=== PATIENT | male | born 1985 | race Caucasian/White ===

== ENCOUNTER → 2018-03-15 08:46 | Outpatient (CLI) | payer OTHER, SELFPAY ==
--- NOTE | 2018-03-15 08:50 | FL_ITS ---
NE upper GI small bowel Ordering Physician: Kenneth Mckinney MD Patient Age: 32 years: Male HISTORY: ITS.REASON: abdominal pain abdominal pain on and off for 10 years with nausea and some vomiting. Nausea in morning. Previous endoscopy. Patient reported left lower quadrant pain just above the lateral left iliac bone. There is is history of long-standing abdominal pain elsewhere. Include Upper abdomen TECHNIQUE: Air-contrast UGI esophagus small bowel series performed by Dr. Szymanski. 3 minutes 7 seconds fluoroscopy time COMPARISON :.. no priors studies FINDINGS [employer] film shows normal bowel gas pattern with only minimal stool throughout colon. UGI.-. No significant findings And thoracic esophagus appears satisfactory with only a tiny 2-3 mm traction diverticulum left aspect of the esophagus subcarinal region noted. No hiatal hernia. Normal mucosal pattern esophagus. No appreciable reflux evident at this setting.. Moderate phrenic ampulla . stomach appears WNL. Normal rugal full pattern distensible. No ulceration or lesion. Only note generous to the stomach at the onset of study which can reflect hypersecretion Pylorus unremarkable.The duodenal bulb was distensible with no ulcer and within normal limits. Upper normal mucosal pattern of the descending duodenum. Duodenal loop normal anatomy. SMALL BOWEL SERIES . normal appearance to the small bowel throughout. Normal caliber.. Normal mucosal pattern . No filling defects. No dilatation or obstruction The terminal ileum appears normal. Well-visualized. *Additional attention was directed towards the left lower quadrant, laterally just above the left iliac crest-this is where the patient states he has current pain. No no abnormalities evident here by this modality . IMPRESSION: 1. UGI.... Essentially negative ... Stomach appears normal. Only note a generous fluid at stomach at onset of study which can reflect hypersecretion. ... Esophagus: only note Tiny 3 mm traction diverticulum left mid esophagus subcarinal region-. Not of significance ....Esophagus Stomach, pylorus and duodenal bulb and loop otherwise unremarkable.. 2. Small Bowel series-WNL. Terminal ileum normal .
== END ==
PROVIDERS: PCP Surgery; Visit Provider Surgery
DX: R19.5 Other fecal abnormalities (principal); R10.84 Generalized abdominal pain
CPT/HCPCS: 74245

== ENCOUNTER → 2018-03-20 10:09 | Outpatient (CLI) | payer OTHER, SELFPAY ==
--- NOTE | 2018-03-20 10:12 | XR_ITS ---
XR KUB HISTORY: Abdominal pain, recent upper GI. Evaluate for residual barium which would impact gastric emptying exam if present ITS.REASON: clear for study ORDERING PHYSICIAN: Kenneth Mckinney MD PATIENT AGE: 32 years COMPARISON: None FINDINGS: The bowel gas pattern is unremarkable. No obvious obstruction.. No abnormal calcifications are evident. No obvious renal or ureteral calculi.. No acute bony anomalies evident. No residual barium apparent IMPRESSION: Negative KUB, no acute finding
--- NOTE | 2018-03-20 10:27 | NM_ITS ---
NM gastric emptying study CLINICAL INDICATION: ITS.REASON: abdominal pain ORDERING PHYSICIAN: Kenneth Mckinney MD PATIENT AGE: 32 years Comparison: None DOSE: 0.51 mCi technetium sulfur colloid with radiolabeled meal FINDINGS: One half emptying time is normal at 56 minutes with normal being 60 +/- 30 minutes. 71% of the gastric contents had M.D. at 89 minutes. Selectivity submitted show no evidence of GE reflux. IMPRESSION: Normal gastric emptying scan
== END ==
PROVIDERS: PCP Surgery; Visit Provider Surgery
DX: R10.9 Unspecified abdominal pain (principal)
CPT/HCPCS: 74018; 78264; A9541

== ENCOUNTER → 2018-03-22 14:33 | Outpatient (CLI) | payer OTHER, SELFPAY ==
[2018-03-22 15:35] LABS: Alanine Aminotransferase 29 U/L (12-78); Albumin Level 4.1 gm/dL (3.4-5.0); Albumin/Globulin Ratio 1.4 (1.1-1.8); Alkaline Phosphatase 39 U/L (46-116); Amylase 47 U/L (25-115); Anion Gap 11.2 mEq/L (5-15); Aspartate Amino Transferase 18 U/L (15-37); Bilirubin,Total 1.6 mg/dL (0.2-1.0); Blood Urea Nitrogen 11 mg/dL (7-18); Calcium 8.8 mg/dL (8.5-10.1); Carbon Dioxide 31 mmol/L (21.0-32.0); Chloride 103 mmol/L (98-107); Creatinine,Serum 0.94 mg/dL (0.70-1.30); Estimated Glomerular Filt Rate 93 ml/min (>60); Free T4 (Free Thyroxine) 1.21 ng/dl (0.76-1.46); GFR (African American) 113 ML/MIN (>60); Glucose 98 mg/dL (74-106); Lipase 134 u/L (73-393); Potassium 4.2 mmoL/L (3.5-5.1); Sodium 141 mmol/L (136-145); Thyroid Stimulating Hormone 2.33 uIU/ml (0.358-3.740); Total Protein,Serum 7.1 gm/dL (6.4-8.2); Triiodothryronine (T3) Uptake 34 % (31-39)
[2018-03-22 15:53] LABS: Basophils # 0.1 K/mm3 (0-0.2); Basophils % 0.9 % (0.1-2.0); Eosinophils # 0.1 K/mm3 (0.0-0.4); Eosinophils % 1.6 % (0.1-12.0); Hematocrit 44.6 % (42.0-52.0); Hemoglobin 14.6 g/dL (14.1-18.0); Lymphocytes # 1.8 K/mm3 (0.7-4.5); Lymphocytes % 31.4 % (10-50); Mean Corpuscular HGB Conc 32.9 g/dL (31.8-35.4); Mean Corpuscular Hemoglobin 30.8 pg (27.0-31.2); Mean Corpuscular Volume 93.7 fl (80-94); Monocytes # 0.4 K/mm3 (0.1-1.0); Neutrophils # 3.3 K/mm3 (1.8-7.8); Neutrophils % 59.1 % (37.0-80.0); Platelet Count 272 K/mm3 (142-424); Red Blood Count 4.76 M/mm3 (4.60-6.20); Red Cell Distribution Width 12.7 % (11.5-17.5); White Blood Count 5.6 K/mm3 (4.8-10.8)
[2018-03-24 17:18] LABS: Triiodothyronine (T3) Free 3.6 pg/mL (2.0-4.4)
== END ==
PROVIDERS: Visit Provider Surgery
DX: R10.84 Generalized abdominal pain (principal); R19.5 Other fecal abnormalities
CPT/HCPCS: 36415; 80053; 82150; 83690; 84439; 84443; 84479; 84481; 85025

== ENCOUNTER → 2018-03-25 16:41 | Outpatient (CLI) | payer OTHER, SELFPAY ==
[2018-03-25 16:43] LABS: Adenovirus F 40/41, stool Not Detected (NotDetected); Astrovirus Not Detected (NotDetected); Campylobacter Not Detected (NotDetected); Cryptosporidium Not Detected (NotDetected); Cyclospora Cayetanesis Not Detected (NotDetected); Entamoeba histolytica Not Detected (NotDetected); Enteroaggregative E coli Not Detected (NotDetected); Enteropathogenic E coli Not Detected (NotDetected); Enterotoxigenic E coli Not Detected (NotDetected); Giardia lamblia Not Detected (NotDetected); Norovirus Not Detected (NotDetected); Plesimonas Shigalloides, PCR Not Detected (NotDetected); Rotavirus A Not Detected (NotDetected); Salmonella, PCR Not Detected (NotDetected); Sapovirus Not Detected (NotDetected); Shiga-like toxin E coli Not Detected (NotDetected); Shigella Enterovasive E coli Not Detected (NotDetected); Vibrio Cholerae Not Detected (NotDetected); Vibrio, PCR Not Detected (NotDetected); Yersinia Entercolitica, PCR Not Detected (NotDetected)
[2018-03-25 21:44] LABS: Clostridium Difficile A/B, PCR Detected (NotDetected)
== END ==
PROVIDERS: Visit Provider Surgery
DX: R19.5 Other fecal abnormalities (principal)
CPT/HCPCS: 87507

== ENCOUNTER → 2018-04-15 14:00 | Outpatient (CLI) | payer OTHER, SELFPAY ==
[2018-04-15 16:04] LABS: Alanine Aminotransferase 33 U/L (12-78); Alkaline Phosphatase 36 U/L (46-116); Aspartate Amino Transferase 26 U/L (15-37); Bilirubin,Direct 0.2 mg/dL (0.0-0.2); Bilirubin,Indirect 1.2 mg/dL (0.0-0.9); Bilirubin,Total 1.4 mg/dL (0.2-1.0); Blood Urea Nitrogen 8 mg/dL (7-18); Calcium 8.8 mg/dL (8.5-10.1); Carbon Dioxide 31 mmol/L (21.0-32.0); Chloride 102 mmol/L (98-107); Creatinine,Serum 0.96 mg/dL (0.70-1.30); Estimated Glomerular Filt Rate 91 ml/min (>60); GFR (African American) 110 ML/MIN (>60); Glucose 84 mg/dL (74-106); Sodium 141 mmol/L (136-145); Total Protein,Serum 6.9 gm/dL (6.4-8.2)
== END ==
PROVIDERS: Visit Provider Surgery
DX: E86.0 Dehydration (principal); E80.6 Other disorders of bilirubin metabolism
CPT/HCPCS: 36415; 80048; 80076

== ENCOUNTER → 2018-07-13 11:28 | Outpatient (CLI) | payer OTHER, SELFPAY ==
[2018-07-13 11:30] LABS: Adenovirus F 40/41, stool Not Detected (NotDetected); Astrovirus Not Detected (NotDetected); Campylobacter Not Detected (NotDetected); Cryptosporidium Not Detected (NotDetected); Cyclospora Cayetanesis Not Detected (NotDetected); Entamoeba histolytica Not Detected (NotDetected); Enteroaggregative E coli Not Detected (NotDetected); Enteropathogenic E coli Not Detected (NotDetected); Enterotoxigenic E coli Not Detected (NotDetected); Giardia lamblia Not Detected (NotDetected); Norovirus Not Detected (NotDetected); Plesimonas Shigalloides, PCR Not Detected (NotDetected); Rotavirus A Not Detected (NotDetected); Salmonella, PCR Not Detected (NotDetected); Sapovirus Not Detected (NotDetected); Shiga-like toxin E coli Not Detected (NotDetected); Shigella Enterovasive E coli Not Detected (NotDetected); Vibrio Cholerae Not Detected (NotDetected); Vibrio, PCR Not Detected (NotDetected); Yersinia Entercolitica, PCR Not Detected (NotDetected)
[2018-07-13 15:55] LABS: Clostridium Difficile A/B, PCR Detected (NotDetected)
== END ==
PROVIDERS: Visit Provider Nurse Practitioner Family
DX: R19.7 Diarrhea, unspecified (principal); A04.72 Enterocolitis due to Clostridium difficile, not specified as recurrent
CPT/HCPCS: 87507

== ENCOUNTER → 2018-09-05 15:30 | Outpatient (CLI) | payer OTHER, SELFPAY ==
[2018-09-05 15:34] LABS: Adenovirus F 40/41, stool Not Detected (NotDetected); Astrovirus Not Detected (NotDetected); Campylobacter Not Detected (NotDetected); Cryptosporidium Not Detected (NotDetected); Cyclospora Cayetanesis Not Detected (NotDetected); Entamoeba histolytica Not Detected (NotDetected); Enteroaggregative E coli Not Detected (NotDetected); Enteropathogenic E coli Not Detected (NotDetected); Enterotoxigenic E coli Not Detected (NotDetected); Giardia lamblia Not Detected (NotDetected); Norovirus Not Detected (NotDetected); Plesimonas Shigalloides, PCR Not Detected (NotDetected); Rotavirus A Not Detected (NotDetected); Salmonella, PCR Not Detected (NotDetected); Sapovirus Not Detected (NotDetected); Shiga-like toxin E coli Not Detected (NotDetected); Shigella Enterovasive E coli Not Detected (NotDetected); Vibrio Cholerae Not Detected (NotDetected); Vibrio, PCR Not Detected (NotDetected); Yersinia Entercolitica, PCR Not Detected (NotDetected)
[2018-09-05 19:55] LABS: Clostridium Difficile A/B, PCR Detected (NotDetected)
== END ==
PROVIDERS: Visit Provider Nurse Practitioner Family
DX: Z86.19 Personal history of other infectious and parasitic diseases (principal)
CPT/HCPCS: 87507

== ENCOUNTER → 2020-10-01 13:34 | Outpatient (CLI) | payer MEDICAID, SELFPAY | PROVIDERS: Visit Provider Nurse Practitioner Family | DX: J11.1 Influenza due to unidentified influenza virus with other respiratory manifestations (principal); J21.0 Acute bronchiolitis due to respiratory syncytial virus | CPT/HCPCS: 87070; 87205 ==

== ENCOUNTER 2022-01-07 12:00 | Emergency (ER) | payer MEDICAID, SELFPAY ==
[2022-01-07] VITALS (7 sets, daily range): BP systolic 117–155; BP diastolic 69–116; PULSE 67–78; RESP 16–18; TEMP 36.7–36.8; O2SAT 97–979; BMI 23.7; BMI 23.8
--- NOTE | 2022-01-07 14:26 | EXP.UTC ---
Discharge Plan Disposition Patient Disposition: Home, Self-Care Condition: Good Referrals Follow up/Referrals: Zach Sanford APRN [Primary Care Provider] - See instructions Activity Restrictions/Add. Instructions Additional Instructions/Restrictions: Please follow-up with your PCP in order to see if you need any work-up from a autoimmune standpoint. Clinical Impressions Clinical Impression: Migraine Instructions Patient Instructions: DI for Migraine Discharge ED Provider: George Ko [facility] [place] HPI General Chief complaint: Headache Stated complaint: Severe migrane Mode of Arrival: Ambulatory Source of Information: Patient Limitations: No Limitations Time Seen by Provider: 01/07/22 14:26 Description of Symptoms (Recalled from Triage Doc. by RN): PATIENT C/O CONSTANT HEADACHE X 2 WEEKS. HE STATES IT FEELS DIFFERENT THAN HIS OTHER MIGRAINES HAVE IN THE PAST. REPORTS SEEING SPOTS AND WORSENING HEADACHE DURING SEXUAL ACTIVITY HEENT Symptoms (Recalled from RN notes): Yes Resp Symptoms (Recalled from RN notes): No Skin Symptoms (Recalled from RN notes): No MS Symptoms (Recalled from RN notes): No Functional Status (Recalled from RN notes): WNL History of Present Illness Provider Complaint: Patient state that for the last 2 weeks he has been having a headache States that he has migraines but this is not like his other migraines he has had State that it is more so on the right side of his druze area above his eye States that at times he sees black moving spots and noticed when he has sex with his he can feel pressure building in his head like his head is going to bust States that normally he can take Motrin and meditate for his headaches but nothing has helped this one and he was concerned when it was different Related Data Allergies Allergy/AdvReac Type Severity Reaction Status Date / Time No Known Allergies Allergy Verified 10/01/20 10:58 Worker's Comp Is this a Worker's Comp case?: No PFSH PFSH Medical History (Updated 01/07/22 @ 20:04 by George Ko MD) Kidney stone Migraine Social History (Updated 01/07/22 @ 14:15 by Neha Muhammad RN) Smoking Status: Never smoker alcohol intake: never substance use type: denies use current occupational status: employed Travel in the last 8 weeks: None household members: family housing: house ROS Obtained: Yes All systems reviewed & no additional complaints except as documented and Yes Systems reviewed as appropriate & no additional complaints except as documented Constitutional Constitutional: Reports system reviewed and no additional complaints, except as documented, Reports as per HPI and Reports headache(s) Eyes Eyes: Reports system reviewed and no additional complaints, except as documented, Reports as per HPI and Reports other (black moving spots at times) ENT Ears, Nose, Mouth, and Throat: Reports system reviewed and no additional complaints, except as documented, Reports as per HPI and Reports headache(s) Cardiovascular Cardiovascular: Reports system reviewed and no additional complaints, except as documented and Reports as per HPI Respiratory Respiratory: Reports system reviewed and no additional complaints, except as documented and Reports as per HPI Neurologic Neurologic: Reports headache(s) Physical Exam General General appearance: alert and in no apparent distress Head Head exam: atraumatic Respiratory Respiratory exam: Present normal lung sounds bilaterally; Absent respiratory distress or wheezes Cardiovascular Cardiovascular exam: Present regular rate and normal rhythm Neurological Exam Neurological exam: Present alert and oriented X3 Medical Decision Making Polo Inquiry Pt receiving controlled substance: No Polo was queried for this patient: No Vital Signs: 01/07/22 14:00 Temperature 98.2 F Temperature Source Oral Pulse Rate [Left Brachial] 68 Respiratory Rate 18 Blood Pressure [Left Arm] 151/111
--- NOTE | 2022-01-07 16:00 | PC.NURSE ---
ED MD AT BEDSIDE
--- NOTE | 2022-01-07 16:02 | CT_ITS ---
PROCEDURE INFORMATION: Exam: CTA Neck With Contrast Exam date and time: 01/07/2022 5:17 PM Age: 36 years old Clinical indication: Pain; Headache; Patient HX: FISCHER w sex; Additional info: CVA TECHNIQUE: Imaging protocol: Computed tomographic angiography of the neck with contrast. 3D rendering (Not supervised by radiologist): MIP and/or 3D reconstructed images were created by the technologist. Radiation optimization: All CT scans at this facility use at least one of these dose optimization techniques: automated exposure control; mA and/or kV adjustment per patient size (includes targeted exams where dose is matched to clinical indication); or iterative reconstruction. Contrast material: ISOVUE; Contrast volume: 100 ml; Contrast route: INTRAVENOUS (IV); COMPARISON: CT HEAD/BRAIN WO CON 01/07/2022 5:15 PM FINDINGS: Right common carotid artery: No stenosis. No dissection or occlusion. Right internal carotid artery: No stenosis of the extracranial segment. No dissection or occlusion. Right external carotid artery: No occlusion or stenosis of the origin. Left common carotid artery: No stenosis. No dissection or occlusion. Left internal carotid artery: No stenosis of the extracranial segment. No dissection or occlusion. Left external carotid artery: No occlusion or stenosis of the origin. Right vertebral artery: No stenosis. No dissection or occlusion. Left vertebral artery: No stenosis. No dissection or occlusion. Soft tissues: Normal. No significant soft tissue swelling. Bones/joints: No acute fracture. IMPRESSION: No stenosis or occlusion. REFERENCES: NASCET CRITERIA. The degree of stenosis in the cervical segment of the internal carotid artery is based on NASCET criteria. Normal is no stenosis. Mild is less than 50% stenosis. Moderate is 50-69% stenosis. Severe is 70% to 99% stenosis. Total occlusion is no detectable patent lumen.
--- NOTE | 2022-01-07 16:02 | CT_ITS ---
PROCEDURE INFORMATION: Exam: CTA Head With Contrast, Arteriography Exam date and time: 01/07/2022 5:17 PM Age: 36 years old Clinical indication: Pain; Headache; Patient HX: FISCHER w sex; Additional info: CVA TECHNIQUE: Imaging protocol: Computed tomographic angiography of the head with contrast. Exam focused on the arteries. 3D rendering (Not supervised by radiologist): MIP and/or 3D reconstructed images were created by the technologist. Radiation optimization: All CT scans at this facility use at least one of these dose optimization techniques: automated exposure control; mA and/or kV adjustment per patient size (includes targeted exams where dose is matched to clinical indication); or iterative reconstruction. Contrast material: ISOVUE; Contrast volume: 100 ml; Contrast route: INTRAVENOUS (IV); COMPARISON: CT HEAD/BRAIN WO CON 01/07/2022 5:15 PM FINDINGS: ANTERIOR CIRCULATION: Right internal carotid artery: Intracranial segment is patent with no significant stenosis. No aneurysm. Right middle cerebral artery: No occlusion or significant stenosis. No aneurysm. Right anterior cerebral artery: No occlusion or significant stenosis. No aneurysm. Left internal carotid artery: Intracranial segment is patent with no significant stenosis. No aneurysm. Left middle cerebral artery: No occlusion or significant stenosis. No aneurysm. Left anterior cerebral artery: Beaded appearance of the A2 A3 segments of left anterior cerebral artery, which can be seen in the context of vasculitis. Correlate clinically POSTERIOR CIRCULATION: Right vertebral artery: No occlusion or significant stenosis. No aneurysm. Left vertebral artery: No occlusion or significant stenosis. No aneurysm. Basilar artery: No occlusion or significant stenosis. No aneurysm. Right posterior cerebral artery: No occlusion or significant stenosis. No aneurysm. Left posterior cerebral artery: No occlusion or significant stenosis. No aneurysm. Veins: no venous sinus thrombosis Brain: No definite mass, mass effect, or midline shift. Cerebral ventricles: No ventriculomegaly. Bones/joints: Unremarkable. No acute fracture. Soft tissues: Unremarkable. IMPRESSION: 1. Beaded appearance of the A2 A3 segments of left anterior cerebral artery, which can be seen in the context of vasculitis. Correlate clinically 2. Otherwise common no occlusion aneurysm or other vascular lesions in the intracranial circulation.
--- NOTE | 2022-01-07 16:02 | CT_ITS ---
PROCEDURE INFORMATION: Exam: CT Head Without Contrast Exam date and time: 01/07/2022 5:15 PM Age: 36 years old Clinical indication: Pain; Headache; Migraine; Aura effect not specified; Does not respond to medication; Severity not specified; Patient HX: FISCHER x 2 wks, worsened w sex; Additional info: CVA TECHNIQUE: Imaging protocol: Computed tomography of the head without contrast. Radiation optimization: All CT scans at this facility use at least one of these dose optimization techniques: automated exposure control; mA and/or kV adjustment per patient size (includes targeted exams where dose is matched to clinical indication); or iterative reconstruction. COMPARISON: No relevant prior studies available. FINDINGS: Brain: No evidence of acute parenchymal hemorrhage, extra-axial collection or local regional mass effect. Cerebral ventricles: The ventricles, sulci and cisterns are normal in size and configuration. No hydrocephalus or midline structure shift Pituitary gland and sella: Sellar/parasellar structures, orbits and craniocervical junction are unremarkable Paranasal sinuses: Visualized sinuses are unremarkable. No fluid levels. Mastoid air cells: Visualized mastoid air cells are well aerated. Bones/joints: No calvarial fracture Soft tissues: Unremarkable. IMPRESSION: No acute intracranial abnormality. No calvarial fracture. If Focal neurological symptoms persist brain MRI can be obtained for better evaluation
--- NOTE | 2022-01-07 16:18 | PC.NURSE ---
PT TO CT AT THIS TIME
--- NOTE | 2022-01-07 16:27 | PC.NURSE ---
PT RETURNED FROM CT
--- NOTE | 2022-01-07 17:33 | PC.NURSE ---
ROUNDED ON PT AT THIS TIME, PT AWARE ED MD IS WITH EMERGENCY AT THIS TIME. PT V/U NO NEEDS AT THIS TIME.
--- NOTE | 2022-01-07 17:45 | PC.NURSE ---
ED MD AT BEDSIDE TO DISCUSS POC AND REEVALUATE PT
[2022-01-07 19:59] LABS: Coronavirus 19, PCR Not Detected (NotDetected); Influenza A, PCR Not Detected (NotDetected); Influenza B, PCR Not Detected (NotDetected)
== END 2022-01-07 20:09 | disposition home or self-care (01) ==
LOC: UTC 14:47 → ER 15:43
PROVIDERS: Emergency Provider Student in an Organized Health Care Education/Training Program; PCP Nurse Practitioner Family
DX: G43.909 Migraine, unspecified, not intractable, without status migrainosus (principal); G44.82 Headache associated with sexual activity
CPT/HCPCS: 70450; 70496; 70498; 96365; 96375; 99285; C9803; Q9967; U0003; U0005

== ENCOUNTER → 2022-01-13 17:23 | Outpatient (CLI) | payer MEDICAID, SELFPAY ==
[2022-01-13 17:39] LABS: Alanine Aminotransferase 29 U/L (12-78); Albumin/Globulin Ratio 1.8 (1.1-1.8); Alkaline Phosphatase 49 U/L (38-126); Anion Gap 16.5 mEq/L (5-15); Aspartate Amino Transferase 28 U/L (17-59); Bilirubin,Total 0.9 mg/dl (0.2-1.3); Blood Urea Nitrogen 8 mg/dl (9-20); Calcium 9.7 mg/dl (8.4-10.2); Carbon Dioxide 31 mmol/L (22.0-30.0); Chloride 100 mmol/L (98-107); Chol/HDL Ratio 3.7 (1-3.5); Cholesterol 164 mg/dl (140-200); Estimated Glomerular Filt Rate 128 ml/min (>60); GFR (African American) 154 ML/MIN (>60); Globulin 2.8 g/dL (1.3-3.2); Glucose 99 mg/dl (74-100); HDL Cholesterol 44 mg/dl (40-60); Potassium 4.5 mmoL/L (3.5-5.1); Sodium 143 mmol/L (136-145); Total Protein,Serum 7.8 g/dl (6.3-8.2); Triglycerides 82 mg/dl (30-150); VLDL Cholesterol 16 mg/dL (0-40)
[2022-01-13 17:42] LABS: Basophils # 0.1 K/mm3 (0-0.2); Basophils % 1.6 % (0.1-2.0); Eosinophils # 0.2 K/mm3 (0.0-0.4); Eosinophils % 3.3 % (0.1-12.0); Hematocrit 47.7 % (42.0-52.0); Hemoglobin 15.5 g/dL (14.1-18.0); Lymphocytes # 1.9 K/mm3 (0.7-4.5); Lymphocytes % 36.3 % (10-50); Mean Corpuscular HGB Conc 32.6 g/dL (31.8-35.4); Mean Corpuscular Hemoglobin 31.1 pg (27.0-31.2); Mean Corpuscular Volume 95.5 fl (80-94); Mean Platelet Volume 8.8 fl (7.4-10.4); Monocytes # 0.4 K/mm3 (0.1-1.0); Monocytes % 8.2 % (1.7-9.3); Neutrophils # 2.7 K/mm3 (1.8-7.8); Neutrophils % 50.6 % (37.0-80.0); Platelet Count 344 K/mm3 (142-424); Red Blood Count 4.99 M/mm3 (4.60-6.20); Red Cell Distribution Width 13.5 % (11.5-17.5); White Blood Count 5.3 K/mm3 (4.8-10.8)
[2022-01-13 17:44] LABS: C-Reactive Protein 0.5 mg/L (0-4)
[2022-01-13 17:56] LABS: Direct LDL Cholesterol 95.37 mg/dL (100-129)
[2022-01-13 18:13] LABS: Thyroid Stimulating Hormone 1.43 uIU/mL (0.465-4.68)
[2022-01-13 19:44] LABS: Erythrocyte Sedimentation Rate 11 mm/hr (0-15)
[2022-01-16 13:22] LABS: Anti-Centromere B Antibodies <0.2 AI (0.0-0.9); Anti-DNA (DS) Ab Qn <1 IU/mL (0-9); Anti-Jo-1 <0.2 AI (0.0-0.9); Anti-Smith Antibody <0.2 AI (0.0-0.9); Antichromatin Antibodies <0.2 AI (0.0-0.9); Antiscleroderma-70 Antibodies <0.2 AI (0.0-0.9); RNP Antibodies 0.2 AI (0.0-0.9); Sjogren's Anti-SS-A <0.2 AI (0.0-0.9); Sjogren's Anti-SS-B <0.2 AI (0.0-0.9)
== END ==
PROVIDERS: PCP Nurse Practitioner Family; Visit Provider Nurse Practitioner Family
DX: G43.909 Migraine, unspecified, not intractable, without status migrainosus (principal); R53.83 Other fatigue
CPT/HCPCS: 80053; 80061; 84443; 85025; 85651; 86140; 86225; 86235